=== PATIENT | male | born 1985 | race African-American/Black ===

== ENCOUNTER 2020-02-13 13:29 | Emergency (ER) | payer OTHER ==
[2020-02-13 13:46] VITALS: BMI 31.1
[2020-02-13] MEDS ORDERED: SODIUM CHLORIDE 1,000 ML IV STA (14:02)
[2020-02-13] MEDS ORDERED: FAMOTIDINE 20 MG/50 ML IVPB 20 MG/50 ML MG IVPB ONE (14:02)
[2020-02-13] MEDS ORDERED: ONDANSETRON 4 MG/2 ML VIAL IVPUSH ONE (14:03)
[2020-02-13 14:44] VITALS: BP 128/73; PULSE 86; TEMP 98.6
[2020-02-13 15:31] LABS: BASO % 0.5 % (0-2.0); EOS % 0.1 % (0-4.5); HEMATOCRIT 45.4 % (35.4-49); HEMOGLOBIN 14.9 GM/dL (11.7-16.9); LYMPH % 13.9 % (8-40); MCHC 32.9 g/dl (32.0-35.9); MEAN CELL VOLUME 94.3 fl (80-96); MONO % 4.2 % (3.8-10.2); NEUT % 81.3 % (42.8-82.8); PLATELET COUNT 301 K/MM3 (134-434); RBC 4.82 M/mm3 (4.00-5.60); RDW 14.6 % (11.9-15.9); WHITE BLOOD COUNT 5.1 K/mm3 (4.0-10.0)
[2020-02-13 15:56] LABS: CHLORIDE 106 mmol/L (98-107); POTASSIUM 5.3 mmol/L (3.5-5.1); SODIUM 139 mmol/L (136-145)
[2020-02-13 15:59] LABS: ALBUMIN 4.2 g/dl (3.4-5.0); CALCIUM 10.5 mg/dL (8.5-10.1); GLUCOSE,RANDOM 119 mg/dL (74-106)
[2020-02-13 16:00] LABS: ANION GAP 7 MMOL/L (8-16); BLOOD UREA NITROGEN 11.4 mg/dL (7-18); CO2 26 mmol/L (21-32); LIPASE 111 U/L (73-393)
[2020-02-13 16:02] LABS: CREATININE 1.5 mg/dL (0.55-1.3); SGPT/ALT 30 U/L (13-61)
[2020-02-13 16:03] LABS: SGOT/AST 25 U/L (15-37)
[2020-02-13 16:04] LABS: BILIRUBIN,TOTAL 0.7 mg/dL (0.2-1); TOT PROT 8.2 g/dl (6.4-8.2)
[2020-02-13 16:05] LABS: ALK PHOS 70 U/L (45-117)
[2020-02-13] MEDS ORDERED: MAG HYDROX/AL HYDROX/SIMETH 30 ML UNIT-DOSE CUP ONE (16:18)
[2020-02-13] MEDS ORDERED: MAG HYDROX/AL HYDROX/SIMETH 30 ML UNIT-DOSE CUP PO ONE (16:20)
--- NOTE | 2020-02-13 16:46 | PDOC ---
History of Present Illness - General Chief Complaint: Pain, Acute Stated Complaint: ABDOMINAL PAIN Time Seen by Provider: 02/13/20 13:45 History Source: Patient Exam Limitations: No Limitations - History of Present Illness Initial Comments: 02/13/20 16:40 Patient is a 34-year-old male who presents to the ED with complaint of epigastric abdominal pain and vomiting since waking this morning. He states he has vomited many times and lost count. He denies any blood in his vomitus. He believes he ate something that could have made him sick. He says he ate a wrap at home yesterday which could have made him sick. He denies any fevers or chills. He does admit to one episode of diarrhea which he states was nonbloody. He took 1 dose of Imodium and is unsure if it helped. He denies any past medical history or allergies to medications. The patient denies any past medical history or allergies to medications. The patient denies chronic marijuana smoke. States he does not smoke cigarettes and only drinks alcohol socially. Past History - Medical History Allergies/Adverse Reactions: Allergies Allergy/AdvReac Type Severity Reaction Status Date / Time No Known Allergies Allergy Verified 02/13/20 14:34 Home Medications: Ambulatory Orders Ondansetron [Zofran *Odt*] 4 mg SL BID PRN #14 od.tablet 02/13/20 COPD: No - Psycho-Social/Smoking History Smoking History: Never smoked - Substance Abuse Hx (Audit-C & DAST Scrn) How often the patient has a drink containing alcohol: 2-4 times / month Number of drinks the patient has on a typical day: 1 or 2 Score: In Men: 4 or > Positive; In Women: 3 or > Positive: 2 Screen Result (Pos requires Nsg. Audit-10AR): Negative In the last yr the pt used illegal drug/Rx for NonMed reason: Yes Score: Yes response is considered Positive: 1 Screen Result (Positive result requires Nsg. DAST-10): Positive Review of Systems - Review of Systems Comments:: 02/13/20 16:42 - Review of Systems Able to Perform ROS?: Yes Constitutional: No: Fever, Chills, Loss of Appetite, Night Sweats, Weakness HEENTM: No: Eye Pain, Vision changes, Ear Pain, Throat Pain, Throat Swelling, Mouth Pain, Difficulty Swallowing Respiratory: No: Cough, Shortness of Breath, Wheezing, Sputum Production Cardiac (ROS): No: Chest Pain, Chest Tightness, Palpitations, Irregular Heart Beat, Edema ABD/GI: No: Nausea, Abdominal Pain, Diarrhea; positive: Epigastric abdominal and vomiting : No Dysuria, No Hematuria, No Frequency, No Urgency Musculoskeletal: No: Muscle Pain, Back Pain, Joint Pain, Muscle Weakness, Neck Pain Integumentary: No: Lesions, Rash Neurological: No: Headache, Numbness, Tingling, Weakness, Speech Difficulties *Physical Exam - Vital Signs Last Vital Signs Temp Pulse Resp BP Pulse Ox 98.6 F 86 19 128/73 100 02/13/20 14:43 02/13/20 14:43 02/13/20 14:43 02/13/20 14:43 02/13/20 14:43 - Physical Exam 02/13/20 16:44 - Physical Exam General Appearance: Nourished, Appropriately Dressed, No Distress HEENT: EOMI, Normal Voice, Hearing Grossly Normal, moist oral mucosa Neck: Supple, No Lymphadenopathy (R), No Lymphadenopathy (L), No Rigidity, No Decreased range of motion Respiratory/Chest: Lungs Clear, Normal Breath Sounds. No Respiratory Distress, No Accessory Muscle Use Cardiovascular: Regular Rhythm, Regular Rate, S1, S2 Gastrointestinal/Abdominal: Normal Bowel Sounds, Soft. Non-tender, No Guarding, No Rebound, No Rigidity; significant epigastric abdominal tenderness to palpatio n. No rebound or guarding. Abdomen is nontympanitic Musculoskeletal: Normal Inspection. No Decreased Range of Motion Extremity: Normal Capillary Refill, Normal Inspection Integumentary: Normal Color, Dry. 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 NML intact, Fully Oriented, Alert, Normal Mood/Affect, Normal Response ED Treatment Course - LABORATORY CBC & Chemistry Diagram: 02/13/20 13:31 02/13/20 13:31 - ADDITIONAL ORDERS Additional order review: Laboratory Results 02/13/20 13:31 Sodium 139 Potassium 5.3 H Chloride 106 Carbon Dioxide 26 Anion Gap 7 L BUN 11.4 Creatinine 1.5 H Est GFR (CKD-EPI)AfAm 68.91 Est GFR (CKD-EPI)NonAf 59.46 Random Glucose 119 H Calcium 10.5 H Total Bilirubin 0.7 AST 25 ALT 30 Alkaline Phosphatase 70 Creatine Kinase 317 H Creatine Kinase Index 0.6 CK-MB (CK-2) 2.0 Troponin I < 0.02 Total Protein 8.2 Albumin 4.2 Lipase 111 02/13/20 13:31 RBC 4.82 MCV 94.3 MCHC 32.9 RDW 14.6 MPV 9.0 Neutrophils % 81.3 Lymphocytes % 13.9 Monocytes % 4.2 Eosinophils % 0.1 Basophils % 0.5 - Medications Given in the ED: ED Medications Discontinued Medications Generic Name Dose Route Start Last Admin Trade Name Mary PRN Reason Stop Dose Admin Al Hydroxide/Mg Hydroxide 30 ml 02/13/20 16:20 02/13/20 16:20 Mylanta Oral Suspension - PO 02/13/20 16:21 30 ml ONCE ONE Administration Sodium Chloride 1,000 mls @ 1,000 mls/hr 02/13/20 14:02 02/13/20 14:54 Normal Saline - IV 02/13/20 15:01 1,000 mls/hr ASDIR STA Administration Famotidine/Sodium Chloride 20 mg in 50 mls @ 100 mls/hr 02/13/20 14:02 02/13/20 14:54 Pepcid 20 Mg Premixed Ivpb - IVPB 02/13/20 14:31 100 mls/hr ONCE ONE Administration Ondansetron HCl 4 mg 02/13/20 14:03 02/13/20 14:54 Zofran Injection IVPUSH 02/13/20 14:04 4 mg ONCE ONE Administration Medical Decision Making - Medical Decision Making 02/13/20 16:45 Assessment: Patient is a 34-year-old male with epigastric abdominal pain and vomiting since waking this morning. He had one episode of diarrhea. Plan: -Saline lock and labs ordered -1 L of NS given -20 mg of Pepcid given -4 mg of Zofran given -Maalox given -Will reassess 02/13/20 17:04 Patient states he is no longer nauseated and is now feeling hungry. Have given him fluids and crackers for a p.o. challenge. 02/13/20 17:23 The patient tolerated p.o. fluids and crackers in the ED. the patient has a slightly elevated potassium, calcium and creatinine (5.3, 10.5, 1.5 respec tively) which are likely secondary to slight dehydration. The patient tolerated half a liter of p.o. fluids and was given 1 L of NS in the ED. The patient has been made aware that he must follow-up with his primary doctor within 1 to 2 days for repeat evaluation and lab work. He should eat a bland diet and drink plenty of fluids. Zofran has been sent to his pharmacy. He understands and agrees with this treatment plan and has been given strict return precautions. The patient stable for discharge. Discharge - Discharge Information Problems reviewed: Yes Clinical Impression/Diagnosis: Epigastric abdominal pain Vomiting Qualifiers: Vomiting type: unspecified Vomiting Intractability: non-intractable Nausea presence: with nausea Qualified Code(s): R11.2 - Nausea with vomiting, unspecified Condition: Improved Disposition: HOME - Additional Discharge Information Prescriptions: Ondansetron [Zofran *Odt*] 4 mg SL BID PRN #14 od.tablet PRN Reason: Nausea - Follow up/Referral Referrals: Lorraine Warner [Primary Care Provider] - 24 hours - Patient Discharge Instructions Patient Printed Discharge Instructions: DI for Vomiting -- Adult Additional Instructions: Eat a bland diet for the next several days and drink plenty of fluids. Be sure to have your labs repeated by your primary doctor in 1 to 2 days for repeat evaluation. Take the Zofran as needed only for nausea. Return to the emergency department for high fevers, shaking chills, profuse vomiting, severe abdominal pain or any other worsening symptoms. - Post Discharge Activity Work/Back to School Note: Back to Work
[2020-02-13] MEDS ORDERED: METOCLOPRAMIDE HCL INJECTION 10 MG/2 ML VIAL IVPB ONE (18:36)
--- NOTE | 2020-02-13 18:39 | PDOC ---
*Physical Exam - Vital Signs Last Vital Signs Temp Pulse Resp BP Pulse Ox 98.6 F 86 19 128/73 100 02/13/20 14:43 02/13/20 14:43 02/13/20 14:43 02/13/20 14:43 02/13/20 14:43 - Physical Exam 02/13/20 18:37 - Physical Exam General Appearance: Nourished, Appropriately Dressed, No Distress Gastrointestinal/Abdominal: Normal Bowel Sounds, Soft. Moderate epigastric abdominal tenderness to palpation. No Guarding, No Rebound, No Rigidity ED Treatment Course - LABORATORY CBC & Chemistry Diagram: 02/13/20 13:31 02/13/20 13:31 - ADDITIONAL ORDERS Additional order review: Laboratory Results 02/13/20 13:31 Sodium 139 Potassium 5.3 H Chloride 106 Carbon Dioxide 26 Anion Gap 7 L BUN 11.4 Creatinine 1.5 H Est GFR (CKD-EPI)AfAm 68.91 Est GFR (CKD-EPI)NonAf 59.46 Random Glucose 119 H Calcium 10.5 H Total Bilirubin 0.7 AST 25 ALT 30 Alkaline Phosphatase 70 Creatine Kinase 317 H Creatine Kinase Index 0.6 CK-MB (CK-2) 2.0 Troponin I < 0.02 Total Protein 8.2 Albumin 4.2 Lipase 111 02/13/20 13:31 RBC 4.82 MCV 94.3 MCHC 32.9 RDW 14.6 MPV 9.0 Neutrophils % 81.3 Lymphocytes % 13.9 Monocytes % 4.2 Eosinophils % 0.1 Basophils % 0.5 - Medications Given in the ED: ED Medications Discontinued Medications Generic Name Dose Route Start Last Admin Trade Name Trellq PRN Reason Stop Dose Admin Al Hydroxide/Mg Hydroxide 30 ml 02/13/20 16:20 02/13/20 16:20 Mylanta Oral Suspension - PO 02/13/20 16:21 30 ml ONCE ONE Administration Sodium Chloride 1,000 mls @ 1,000 mls/hr 02/13/20 14:02 02/13/20 14:54 Normal Saline - IV 02/13/20 15:01 1,000 mls/hr ASDIR STA Administration Famotidine/Sodium Chloride 20 mg in 50 mls @ 100 mls/hr 02/13/20 14:02 02/13/20 14:54 Pepcid 20 Mg Premixed Ivpb - IVPB 02/13/20 14:31 100 mls/hr ONCE ONE Administration Ondansetron HCl 4 mg 02/13/20 14:03 02/13/20 14:54 Zofran Injection IVPUSH 02/13/20 14:04 4 mg ONCE ONE Administration Medical Decision Making - Medical Decision Making 02/13/20 18:37 Upon discharge, the patient began to feel unwell again and vomited 1 time while getting his prescription at the pharmacy. His IV had already been removed but he is requesting a new IV and to feel better. 1 L of D5 1/2 NS bolus has been ordered, Reglan 10 mg IV piggyback has been ordered and 25 mg of IV Benadryl has been ordered. Will reassess the patient. 02/13/20 20:04 The patient states he is feeling better but does not feel 100%. He states he does feel well enough to go home and has tolerated p.o. fluids in the ED. He will follow-up with his primary doctor within 1 to 2 days for repeat evaluation. He has been given strict return precautions. The patient is stable for discharge. Discharge - Discharge Information Problems reviewed: Yes Clinical Impression/Diagnosis: Epigastric abdominal pain Vomiting Qualifiers: Vomiting type: unspecified Vomiting Intractability: non-intractable Nausea presence: with nausea Qualified Code(s): R11.2 - Nausea with vomiting, unspecified Condition: Improved Disposition: HOME - Admission Yes - Additional Discharge Information Prescriptions: Ondansetron [Zofran *Odt*] 4 mg SL BID PRN #14 od.tablet PRN Reason: Nausea - Follow up/Referral Referrals: Lorraine Warner [Primary Care Provider] - 24 hours - Patient Discharge Instructions Patient Printed Discharge Instructions: DI for Vomiting -- Adult Additional Instructions: Eat a bland diet for the next several days and drink plenty of fluids. Be sure to have your labs repeated by your primary doctor in 1 to 2 days for repeat evaluation. Take the Zofran as needed only for nausea. Return to the emergency department for high fevers, shaking chills, profuse vomiting, severe abdominal pain or any other worsening symptoms. - Post Discharge Activity Work/Back to School Note: Back to Work
[2020-02-13] MEDS ORDERED: DEXTROSE 5%-0.45% SALINE 1,000 ML IV SCH (18:45)
--- NOTE | 2020-02-14 11:50 | EKG ---
Test Reason : Blood Pressure : / mmHG Vent. Rate : 045 BPM Atrial Rate : 045 BPM P-R Int : 136 ms QRS Dur : 084 ms QT Int : 506 ms P-R-T Axes : 052 060 052 degrees QTc Int : 437 ms SINUS BRADYCARDIA OTHERWISE NORMAL ECG NO PREVIOUS ECGS AVAILABLE Confirmed by CLARA DOMINGUEZ MD ([id number]) on 02/14/2020 11:49:43 AM Referred By: Confirmed By:CLARA DOMINGUEZ MD
== END 2020-02-13 20:35 | disposition home or self-care (01) ==
LOC: JER 13:29
PROC: 3E033NZ Introduction of Analgesics, Hypnotics, Sedatives into Peripheral Vein, Percutaneous Approach (ICD-10-PCS; principal; 2020-02-13)
PROC: 3E033GC Introduction of Other Therapeutic Substance into Peripheral Vein, Percutaneous Approach (ICD-10-PCS; 2020-02-13)
PROC: 3E0337Z Introduction of Electrolytic and Water Balance Substance into Peripheral Vein, Percutaneous Approach (ICD-10-PCS; 2020-02-13)
DX: R10.13 Epigastric pain (principal); R11.2 Nausea with vomiting, unspecified
CPT/HCPCS: 36415; 80053; 82550; 82553; 83690; 84484; 85025; 93005; 93010; 99285-25